=== PATIENT | female | born 1965 | race Caucasian/White ===

== ENCOUNTER → 2021-09-08 03:13 | Outpatient (CLI) | payer BC, SELFPAY ==
[2021-09-08 10:37] LABS: SARS-CoV-2 RNA PCR Negative
== END ==
PROVIDERS: PCP Nurse Practitioner Obstetrics & Gynecology
DX: Z20.822 Contact with and (suspected) exposure to COVID-19 (principal)
CPT/HCPCS: C9803; U0003; U0005

== ENCOUNTER → 2021-11-03 02:58 | Outpatient (CLI) | payer BC, SELFPAY ==
[2021-11-03 11:23] LABS: SARS-CoV-2 RNA PCR Negative
== END ==
DX: N62 Hypertrophy of breast (principal); Z20.822 Contact with and (suspected) exposure to COVID-19
CPT/HCPCS: C9803; U0003; U0005